=== PATIENT | male | born 1985 | race Caucasian/White ===

== ENCOUNTER 2021-02-08 12:00 | Emergency (ER) | payer SELFPAY ==
[2021-02-08 13:48] LABS: HEMOGLOBIN 17.2 gm/dl (14.0-17.5); RED BLOOD COUNT 5.29 M/UL (4.20-5.50); WHITE BLOOD COUNT 11.4 K/UL (4.5-11.0)
[2021-02-08 14:10] LABS: BUN/CREATININE RATIO 13 (0-10)
[2021-02-08] MEDS ORDERED: BENTYL 20MG TAB20 MG PO (17:30)
[2021-02-08] MEDS ORDERED: FLORASTOR250 MG PO (17:30)
[2021-02-08] MEDS ORDERED: ZOFRAN ODT 4 MG4 MG SL (17:30)
== END 2021-02-08 17:41 | disposition home or self-care (01) ==
LOC: ER1 12:00
PROVIDERS: Physician Assistant Medical
DX: R11.2 Nausea with vomiting, unspecified (principal); R10.9 Unspecified abdominal pain; R19.7 Diarrhea, unspecified
CPT/HCPCS: 80053; 81001; 83690; 85025; 99284; Q9967